=== PATIENT | female | born 1945 | race Caucasian/White ===

== ENCOUNTER 2021-12-30 19:22 | Observation (INO) | payer MEDICARE ==
[~2021-12-30] VITALS: Ht 157.5 cm; Wt 64.5 kg
--- NOTE | 2021-12-30 20:32 | NUR ---
PT TO [facility] GUTIERREZ UPDATED ON STATUS
[2021-12-30 20:50] LABS: HEMATOCRIT 36.8 % (37.0-47.0); HEMOGLOBIN 11.8 g/dl (12.0-16.0); IMMATURE GRANULOCYTES 0.4 % (0.0-5.0); MEAN CELL VOLUME 91.3 fL CALC (80.0-100.0); MEAN CORPUSCULAR HGB 29.3 pG CALC (26.0-32.0); MEAN CORPUSCULAR HGB CONC 32.1 g/dL CAL (32.0-36.0); NEUT# 4.75 thou/uL (2.00-7.15); RED BLOOD COUNT 4.03 mill/uL (4.20-5.60); RED CELL DISTRI WIDTH 16.4 % (11.5-15.5)
[2021-12-30 21:01] LABS: ALKALINE PHOSPHATASE 74 u/l (38-126); ANION GAP 11 (6-22 (CALC)); BILIRUBIN, TOTAL 0.4 mg/dL (0.0-1.4); BUN 31 mg/dL (8-23); BUN/CREATININE RATIO 29 (12-20 (CALC)); CARBON DIOXIDE 27 mmol/l (22-30); CHLORIDE 105 mmol/l (95-108); CPK 57 u/l (30-165); CREATININE 1.1 mg/dL (0.5-1.0); GFR 49 ML/MIN (>=60 (CALC)); GFR FOR AFR.AMER. 59 ML/MIN (>=60 (CALC)); POTASSIUM 3.1 mmol/l (3.5-5.1); SGOT/AST 29 u/l (9-36); SODIUM 141 mmol/l (137-146); TOTAL PROTEIN 7.2 g/dL (6.3-8.2)
--- NOTE | 2021-12-30 21:01 | NUR ---
Reassessment of patient completed. No distress noted.
[2021-12-30 21:15] LABS: D-DIMER 0.88 mg/L (0.19-0.60)
[2021-12-30 21:19] LABS: ACT PARTIAL THROMBO TIME 22.7 SECONDS (20.0-32.5); INTERNATIONAL NORMALIZED RATIO 0.9 RATIO (0.7-1.3); PROTHROMBIN TIME 9.8 SECONDS (9.0-12.5)
--- NOTE | 2021-12-30 22:12 | NUR ---
Reassessment of patient completed. No distress noted.
--- NOTE | 2021-12-30 23:08 | NUR ---
Reassessment of patient completed. No distress noted.
--- NOTE | 2021-12-31 00:03 | NUR ---
Reassessment of patient completed. No distress noted.
--- NOTE | 2021-12-31 01:46 | NUR ---
REPORT CALLED TO ZEB LOPEZ ON MED SURG.
--- NOTE | 2021-12-31 02:00 | NUR ---
PT ARRIVED TO [facility] ROOM 269 VIA PORTABLE ACCOMPAINED BY ER STAFF. PT IS A/OX3. ASSESSMENT COMPLETED. REPSIRATIONS EVEN AND UNLABORED. LUNG SOUNDS CLEAR. HEART RHYTHM NORMAL WITH TELE IN PLACE (1227). BOWEL SOUNDS ACTIVE, LBM 12/30/21. PULSES STRONG. #20G LAC FLUSHED, SITE APPEARS HEALTHY AND PATENT. ABRASION NOTED TO LEFT FOREHEAD, PHOTO TO BE OBTAINED. PT DENIES OF ANY PAINS. ALLERGIES NOTED. PT ORIENTED TO ROOM AND CALL SYSTEM. ALL SAFTE[employer] PRECAUTIONS ARE IN PLACE WITH CALL LIGHT IN REACH. PT INSTRUCTED TO CALL FOR ASSISTANCE.
--- NOTE | 2021-12-31 02:01 | NUR ---
PT STOOD AND TRASNFERRED TO WHEELCHAIR WITH NO ASSIST AND STEADY GAIT, TRASNPORTED TO MED SURG RM 268, RECIEVING NURSE AT BEDSIDE ON ARRIVAL.
[2021-12-31 02:14] VITALS: BP 123/76
--- NOTE | 2021-12-31 03:00 | NUR ---
UNABLE TO TAKE A PICTURE OF PTS INJURY. WORKING [employer] ELAINE AVAILABLE.
[2021-12-31 03:17] LABS: URINE BILIRUBIN - DIPSTICK NEGATIVE (NEGATIVE); URINE BLOOD DIPSTICK TRACE-INTACT (NEGATIVE); URINE COLOR YELLOW; URINE GLUCOSE - DIPSTICK NEGATIVE (NEGATIVE); URINE KETONE NEGATIVE (NEGATIVE); URINE LEUK ESTERASE NEGATIVE (NEGATIVE); URINE NITRITE - DIPSTICK NEGATIVE (Negative); URINE PH 5.5 (4.5-8.0); URINE PROTEIN - DIPSTICK NEGATIVE (NEG-TRACE); URINE UROBILINOGEN - DIPSTICK 0.2 E.U./dL (0.2)
--- NOTE | 2021-12-31 03:30 | NUR ---
PT LAYING IN BED WITH EYES CLOSED, APPEARS TO BE SLEEPING, APPEARS COMFORTABLE AND IN NO DISTRESS. RESPIRATIONS REGULAR AND UNLABORED. ITEMS REMAIN WITHIN REACH, CALL KWOK REMAINS WITHIN REACH. BED REMAINS LOCKED AND IN LOW POSITION WITH BEDRAILS UP X2. WILL CONTINUE TO MONITOR.
[2021-12-31 04:00] VITALS: BP 124/59
--- NOTE | 2021-12-31 07:40 | NUR ---
REPORT RECEIVED FROM HAMIDA SEAY. PT AWAKE ALERT AND APPROPRIATE. C/O PAIN TO THE LEFT SIDE OF FOREHEAD. MOTRIN GIVEN FOR PAIN. EATING BREAKFAST WITH NO DISTRESS NOTED. REPORTS NO EPISODE OF FURTHER SYNCOPE. EAGER FOR POSSIBLE DISCHARGE TODAY. CALL LIGHT WITHIN REACH INSTRUCTED PT TO CALL FOR ASSISTANCE, VERBALIZES UNDERSTANDING.
[2021-12-31] MEDS ORDERED: ZOLOFT100 MG PO (10:42)
[2021-12-31] MEDS ORDERED: TOPROL XL25 MG PO (10:43)
[2021-12-31] MEDS ORDERED: ASPIRIN ADULT L81 M2 PO (10:43)
[2021-12-31] MEDS ORDERED: DEMADEX20 MG PO (10:43)
--- NOTE | 2021-12-31 10:57 | NUR ---
PT ASSISTED TO THE BR, WITH MINIMAL STANDBY ASSISTANCE, NO EPISODE OF DIZZINESS, OR SYNCOPE AT THIS TIME. 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 PT STATES UNDERSTANDING OF POSSIBLE DISCHARGE.
--- NOTE | 2021-12-31 12:52 | NUR ---
PT DISCHARGED AT THIS TIME IN STABLE CONDITION. INSTRUCTIONS PROVIDED. FAMILY AT BS. IV SITE REMOVED.
== END 2021-12-31 12:25 | disposition home or self-care (01) ==
LOC: ED 19:22 → ED-I 23:44 → ED 12-31 00:04 → MS2 12-31 00:05
PROVIDERS: Family Medicine; ADMIT Internal Medicine; ATTEND Internal Medicine
DX: R55 Syncope and collapse (principal); S00.83XA Contusion of other part of head, initial encounter; S63.501A Unspecified sprain of right wrist, initial encounter; I48.0 Paroxysmal atrial fibrillation; I25.10 Atherosclerotic heart disease of native coronary artery without angina pectoris; W18.30XA Fall on same level, unspecified, initial encounter; Z95.1 Presence of aortocoronary bypass graft; Z95.5 Presence of coronary angioplasty implant and graft; Z95.2 Presence of prosthetic heart valve; Z95.0 Presence of cardiac pacemaker; Z95.818 Presence of other cardiac implants and grafts; Z20.822 Contact with and (suspected) exposure to COVID-19
CPT/HCPCS: G0378; J1650; Q9967